=== PATIENT | male | born 1960 | race Caucasian/White ===

== ENCOUNTER → 2016-11-05 | Outpatient (CLI) | payer MEDICAID ==
[2016-11-05 12:23] LABS: EKG EKG PERFORMED
[2016-11-05 13:15] LABS: Basophils % (A) 0 %; CH 31.4; CHCM 33.6; Eosinophils # (A) 0.1 k/uL (0-0.7); Eosinophils % (A) 3 %; HCT 46.3 % (39.0-53.0); HDW 2.52; HGB 15.4 gm/dL (13.0-17.5); Luc # (Auto) 0.13; Luc % (Auto) 3; Lymphocytes # (A) 1.8 k/uL (1.0-4.8); Lymphocytes % (A) 35 %; MCH 31.3 pg (25.0-35.0); MCHC 33.3 g/dL (31.0-37.0); MCV 93.9 fL (80.0-100.0); Mean Platelet Volume 7.2; Monocytes # (A) 0.3 k/uL (0-1.0); Monocytes % (A) 5 %; Neutrophils # (A) 2.8 k/uL (1.3-7.7); Neutrophils % (A) 54 %; RBC 4.93 m/uL (4.30-5.90); RDW 12.7 % (11.5-15.5); WBC 5.1 k/uL (3.8-10.6); WBC (Perox) 5.38
[2016-11-05 13:23] LABS: Partial Thromboplastin Time 28.6 sec (22.0-30.0); Prothrombin Time 9.8 sec (9.0-12.0)
[2016-11-05 13:29] LABS: Anion Gap 9 mmol/L; Blood Urea Nitrogen 17 mg/dL (9-20); Calcium 9.2 mg/dL (8.4-10.2); Carbon Dioxide 28 mmol/L (22-30); Chloride 104 mmol/L (98-107); Glucose 105 mg/dL (74-99); Non-African American GFR(MDRD) >60 (>60 ml/min/1.73 sqM); Potassium 4.5 mmol/L (3.5-5.1); Sodium 141 mmol/L (137-145)
--- NOTE | 2016-11-05 13:49 | XR ---
EXAMINATION TYPE: XR chest 2V DATE OF EXAM: 11/05/2016 12:48 PM COMPARISON: NONE INDICATION: Presurgical clearance TECHNIQUE: Single frontal view of the chest is obtained. FINDINGS: The heart size is normal. The pulmonary vasculature is normal. The lungs are clear. There is hyperinflation flattening the diaphragms. Consider COPD within the differential. IMPRESSION: 1. No acute pulmonary process. 2. COPD
[2016-11-05 13:57] LABS: Appearance,Urine Clear (Clear); Bilirubin,Urine Negative (Negative); Glucose,Urine (UA) Negative (Negative); Ketones,Urine Negative (Negative); Leukocyte Esterase,Urine Negative (Negative); Nitrite,Urine Negative (Negative); PH, Urine 5.5 (5.0-8.0); Protein,Urine Trace (Negative); Specific Gravity,Urine 1.025 (1.001-1.035); UA Billing (MACRO vs. MICRO) CHEM; Urobilinogen,Urine <2.0 mg/dL (<2.0)
== END | disposition home or self-care (01) ==
LOC: LABPAT 12:03
PROVIDERS: ATTEND Orthopaedic Surgery Orthopaedic Surgery of the Spine
DX: Z01.810 Encounter for preprocedural cardiovascular examination (principal); Z01.812 Encounter for preprocedural laboratory examination; J44.9 Chronic obstructive pulmonary disease, unspecified
CPT/HCPCS: 71020; 80048; 81003; 85025; 85610; 85730; 93005

== ENCOUNTER → 2016-11-19 | Outpatient (CLI) | payer MEDICAID | END | disposition home or self-care (01) | LOC: LABPAT 12:47 | PROVIDERS: ATTEND Orthopaedic Surgery Orthopaedic Surgery of the Spine | DX: Z01.812 Encounter for preprocedural laboratory examination (principal) | CPT/HCPCS: 86850; 86900; 86901; 87070 ==

== ENCOUNTER 2016-11-24 11:38 | Day surgery (SDC) | payer MEDICAID ==
[2016-11-18 10:35] VITALS: BMI 30.2
[~2016-11-24 11:38] MED LIST: BACITRACIN 50,000 UNIT, POLYMYXIN B 500,000 UNIT in SODIUM CHLORIDE 0.9% IRRIGATIO 1,00... IRRIGATION ONE; DEXAMETHASONE SOD PHOSPHATE 10 MG/ML 1 ML VIAL IV ONE; LIDOCAINE 1% 20 ML VIAL (10MG/ML) FOR IV START INTRADERMA PRN; MIDAZOLAM 2 MG/2 ML VIAL IV PRN; ONDANSETRON 4 MG/2 ML VIAL IVP ONE; SCOPOLAMINE 1.5MG/72HR PATCH TRANSDERM ONE; ceFAZolin 2 GM in SODIUM CHLORIDE 0.9% 100 ML IVPB ONE
[2016-11-24] MEDS: LACTATED RINGERS 1,000 ML IV SCH ×2 (12:35→13:20)
[2016-11-24] MEDS ORDERED: LIDOCAINE 1% 20 ML VIAL (10MG/ML) FOR IV START INTRADERMA ONE (12:36)
[2016-11-24] MEDS ORDERED: ROCURONIUM BROMIDE 10 MG/ML 10 ML VIAL IV ONE (13:19)
[2016-11-24] MEDS ORDERED: LIDOCAINE 1% INJ 10MG/ML (20 ML MDV) ONE (13:19)
[2016-11-24] MEDS ORDERED: HYDROmorphone (PF) 1 MG/ML ONE (13:19)
[2016-11-24] MEDS ORDERED: fentaNYL (PF) 50 MCG/ML 2 ML AMP ONE (13:19)
[2016-11-24] MEDS ORDERED: MIDAZOLAM 2 MG/2 ML VIAL ONE (13:19)
[2016-11-24] MEDS ORDERED: GLYCOPYRROLATE 0.2 MG/ML 2 ML VIAL ONE (13:19)
[2016-11-24] MEDS ORDERED: NEOSTIGMINE 1 MG/ML 10 ML VIAL ONE (13:19)
[2016-11-24] MEDS ORDERED: PROPOFOL 10 MG/ML 20 ML VIAL IV ONE (13:19)
[2016-11-24] MEDS ORDERED: GELATIN SPONGE,ABSORB (LARGE) 1 EACH SPONGE TOPICAL ONE (13:47)
[2016-11-24] MEDS ORDERED: LIDOCAINE 0.5%-EPI 1:200,000 50 ML VIAL SQ ONE ×2 (13:47)
[2016-11-24] MEDS ORDERED: methylPREDNISolone ACETATE 80 MG/ML 1 ML VIAL MISCELLANE ONE ×2 (13:47→14:26)
--- NOTE | 2016-11-24 14:08 | FL ---
EXAMINATION TYPE: FL guidance operating room DATE OF EXAM: 11/24/2016 2:05 PM HISTORY: Flouroscopy time 5 seconds of fluoroscopy provided. IMPRESSION: 1. Fluoroscopy time.
--- NOTE | 2016-11-24 14:41 | P.OP ---
Date of Procedure: 11/24/16 Preoperative Diagnosis: Herniated nucleus pulposus L4 5 Lower extremity radiculopathy Degenerative disc disease Spinal stenosis Postoperative Diagnosis: Same Anesthesia: GETA Pathology: none sent Condition: stable Description of Procedure: BRIEF OPERATIVE NOTE Preoperative Diagnosis: Herniated nucleus pulposis L4 5, lower extremity radiculopathy, degenerative disc disease L4 5, spinal stenosis Postoperative Diagnosis: Same Procedure: Laminectomy and decompression L4 5 Discectomy for decompression L4 5 Use of fluoroscopic guidance Surgeon: Dr. Greer [employer] Administrator: Juan Ramon HODGES who is present throughout the entire the case persistence during positioning, dissection, exposure, visualization, and all crucial elements of the case as well as closure. Anesthesia: General anesthesia Estimated blood loss: Approximately 100 mL Complications: None apparent Components implanted: None Disposition: To recovery room in good stable condition. OPERATIVE INDICATIONS The patient has been having issues in their lower back and lower extremities. He was found to have a disc herniation L4 5 with significant stenosis which correlated well with his back and lower extremity symptoms. The patient has been through conservative treatment. He is not having any prolonged benefit despite aggressive conservative treatment. We discussed various treatment options including surgery, and the patient wishes to proceed with surgery We discussed the risk, patient's alternatives and benefits of surgery including but not limited to, risk of bleeding risk of infection, risk of need for further surgery, risk of decreased, loss of motion, loss of function, nerve damage, paralysis, heart attack, blindness and . OPERATIVE SUMMARY After discussing all the risks, patient alternatives and benefits at length, the patient elected to proceed with surgical intervention, signed informed consent, and presented for their procedure. The patient was seen and examined in the preoperative holding area and the surgical site was marked. The patient was given antibiotics and brought to the operating room. The patient was sedated and intubated by anesthesia in standard fashion. The patient was positioned on to the operating room table in a prone position on the appropriate frame which was well-padded and well molded. We were careful to pad any bony prominences and pressure points. We were careful to maintain the patient's cervical spine and good neutral alignment and position throughout. The patient was prepped and draped in a normal standard fashion. An appropriate timeout and keystone protocol performed. We were able to proceed with the surgery. Fluoroscopy was utilized to establish the appropriate level. The local wound area was infiltrated with local anesthetic. An incision was made at the midline longitudinally over the appropriate levels at L4 5. Dissection was taken down subcutaneously to the level of the fascia which was split midline. Dissection was taken over the lamina. Intraoperative fluoroscopy was taken which showed a marker at the appropriate level at L4 5. With the appropriate level positively confirmed, we were able to proceed with laminectomy. The wound was copiously irrigated and suctioned dry as had been done periodically throughout the case. I performed a laminectomy with a combination of curettes and a high-speed bur and Kerrison rongeurs. A small medial facetectomy was performed again further access. A partial foraminotomy was also performed. Portions of the ligamentum flavum were taken down to expose the dura and traversing nerve root. I was able to mobilize the traversing nerve root and gain access to the disc space. Note was made of obvious compression from the disc. There were also a significant increased amount of blood vessels at the area causing some further pressure on the nerve root. I was able to cauterize cc with bipolar cauterization. This took some pressure off the nerve root as well. Protecting the soft tissue structures, a small annulotomy was established. There was significant disc protrusion and disc herniations. I was able to perform discectomy and remove any extruded disc fragments and any loose fragments from within the disc itself. There is some significant disc desiccation noted. I tried to preserve the disc annulus that appeared stable. There were no further extruded fragments noted. There is no evidence of dural tear or leak. Good hemostasis maintained. The wound was copiously irrigated and suctioned dry. Good decompression and discectomy was noted. We were able to proceed with closure. The fascia was closed for a watertight closure. The subcuticular tissue was closed with absorbable suture. The wound was cleaned and dried and dressed with the appropriate dressing. The drapes were broken down. The patient was gently rolled back onto their hospital bed being careful to maintain their cervical spine and good neutral alignment and position. They were woken up by anesthesia, extubated, and brought to the recovery room in good stable condition. The patient will be admitted to the hospital for observation and for appropriate postoperative care, medical management and monitoring. We will continue to follow them closely about the postoperative course.
[2016-11-24 14:55] VITALS: TEMP 97.4
[2016-11-24] MEDS: HYDROmorphone 1 MG/ML 1 ML SYRINGE IVP PRN ×3 (15:04→15:48)
[2016-11-24] MEDS ORDERED: DIAZEPAM 5 MG TAB PO PRN (15:27)
[2016-11-24] MEDS ORDERED: HYDROmorphone 1 MG/ML 1 ML SYRINGE IVP PRN (15:27)
[2016-11-24] MEDS ORDERED: BENZOCAINE/MENTHOL LOZENG 1 EACH LOZENGE MUCOUS MEM PRN (15:27)
[2016-11-24] MEDS ORDERED: HYDROcodone/APAP 5-325MG 1 EACH TAB PO PRN ×2 (15:27)
[2016-11-24] MEDS ORDERED: IBUPROFEN 600 MG TAB PO PRN (15:27)
[2016-11-24] MEDS ORDERED: TRIMETHOBENZAMIDE 100 MG/ML 2 ML VIAL IM PRN (15:27)
[2016-11-24] MEDS ORDERED: oxyCODONE ER 15 MG TAB.ER.12H PO SCH (15:30)
--- NOTE | 2016-11-24 15:31 | P.DS ---
Providers Attending physician: Lori Greer Primary care physician: [facility] Hospital Course: The patient presented on the day of admission as per his operative note. He had a herniated disc at L4 5 which is causing back pain and lower extremity radiculopathy and had failed conservative treatment. Physical Exam The incision site is clean dry and intact. There is no erythema no drainage. There is no purulence no evidence of infection. Abdomen soft and nontender. Chest has good excursion with deep inspiration and expiration. The patient has active and passive range of motion intact at the upper and lower extremities. There is no acute change in neurologic status. Hospital Course The patient has been making good progress postoperatively status post laminectomy and discectomy at L4 5 for his herniated nucleus pulposis with stenosis and lower extremity radiculopathy.. He is mobile and his pain is well- controlled. He feels his legs are made improvement with surgery already. They have completed the prophylactic antibiotics without any signs or symptoms of infection. The patient has been able to advance their diet, and is tolerating diet adequately. The pain was initially controlled with IV medications and is now controlled appropriately with oral medications. The patient has been able to increase their mobilization. The patient has progressed appropriately. I think they are in good stable condition for discharge today. They will be sent home with appropriate prescriptions. I answered their questions to the best of my ability in a language that they can understand and they are agreeable with the plan. They will follow up as directed in approximately 2 weeks or sooner if he is having any problems.. Patient Condition at Discharge: Good Plan - Discharge Summary Discharge Medication List Gabapentin [Neurontin] 100 mg PO HS 11/18/16 [History] Ibuprofen [Motrin] 800 mg PO BID 11/18/16 [History] Pantoprazole Sodium [Protonix] 40 mg PO BID 11/18/16 [History] oxyCODONE ER [OxyCONTIN 15MG E.R] 15 mg PO DIRECTED 11/18/16 [History] Follow up Appointment(s)/Referral(s): Lori Greer DO [Doctor of Osteopathic Medicine] - 2 Weeks (With Juan Ramon Balbuena at Dr. Greer's office) Activity/Diet/Wound Care/Special Instructions: Keep site clean. May shower with waterproof dressing intact. Avoid heavy or rigorous activity. May ambulate to tolerance. May remove dressing after 72 hours. And then may shower with area uncovered. Do not soak in a tub. Keep Steri-Strips intact and allow them to fray off on their own. Discharge Disposition: HOME SELF-CARE
[2016-11-24] MEDS ORDERED: KETOROLAC 30 MG/ML 1 ML VIAL IVP ONE (15:43)
[2016-11-24] MEDS ORDERED: LACTATED RINGERS 1,000 ML IV ONE (15:57)
[2016-11-24 16:07] VITALS: RESP 18
[2016-11-24] MEDS ORDERED: LABETALOL 5 MG/ML VIAL MDV IVP ONE (16:38)
[2016-11-24 16:47] VITALS: BP 146/83; PULSE 56
[2016-11-24] MEDS ORDERED: PANTOPRAZOLE 40 MG TABLET PO SCH (17:30)
[2016-11-24] MEDS ORDERED: ceFAZolin 2 GM in SODIUM CHLORIDE 0.9% 100 ML IVPB SCH (21:00)
[2016-11-24] MEDS ORDERED: IBUPROFEN 800 MG TAB PO SCH (21:00)
[2016-11-24] MEDS ORDERED: GABAPENTIN 100 MG CAP PO SCH (21:00)
== END 2016-11-24 16:56 | disposition home or self-care (01) ==
LOC: OR 11:38 → 3SUR 14:41 → OR 16:56
PROVIDERS: ATTEND Orthopaedic Surgery Orthopaedic Surgery of the Spine
DX: M51.16 Intervertebral disc disorders with radiculopathy, lumbar region (principal); M51.36 Other intervertebral disc degeneration, lumbar region; M51.26 Other intervertebral disc displacement, lumbar region; M48.06 Spinal stenosis, lumbar region; K21.9 Gastro-esophageal reflux disease without esophagitis; J44.9 Chronic obstructive pulmonary disease, unspecified; F17.200 Nicotine dependence, unspecified, uncomplicated; Z79.1 Long term (current) use of non-steroidal anti-inflammatories (NSAID); Z79.891 Long term (current) use of opiate analgesic; Z79.899 Other long term (current) drug therapy; Z88.8 Allergy status to other drugs, medicaments and biological substances
CPT/HCPCS: 86900; 86901; 86850; 63030; J2250; J1040; J2710; J0690; J2405; J2001; J3010; J1885; J1170; J2704

== ENCOUNTER → 2016-12-17 | Outpatient (CLI) | payer MEDICAID ==
--- NOTE | 2016-12-17 17:29 | MR ---
EXAMINATION TYPE: MR shoulder RT wo con DATE OF EXAM: 12/17/2016 9:32 AM COMPARISON: NONE HISTORY: Right shoulder pain TECHNIQUE: Multiplanar, multisequence imaging of the right shoulder is performed without contrast. FINDINGS: Rotator Cuff: Normal signal involving the distal margin of the supraspinatus tendon extending to the insertion. Measures approximately 2 x 1.3 cm compatible severe tendinosis and partial tear. No defini te through thickness tear or retraction. Acromioclavicular Joint: Hypertrophic change of the AC joint noted. No definite mass effect upon the supraspinatus tendon or muscle. Glenohumeral Joint: No sizable joint effusion. Inferior glenohumeral ligament intact. Labrum: Findings are suspicious for SLAP tear. Biceps Tendon: The long head of biceps is in normal location within bicipital groove. Increased fluid surrounding the biceps tendon compatible with tendinosis. Bone marrow signal: No focal abnormal marrow signal is appreciated. Other: No additional significant abnormality is appreciated. IMPRESSION: 1. Distal supraspinatus tendinosis with partial tear but no evidence of retraction or through thickne ss tear. 2. SLAP tear 3. Bicipital tendinosis
== END | disposition home or self-care (01) ==
LOC: RADMRIMAIN 08:51
PROVIDERS: ATTEND Family Medicine
DX: M75.111 Incomplete rotator cuff tear or rupture of right shoulder, not specified as traumatic (principal); M75.81 Other shoulder lesions, right shoulder; S43.401A Unspecified sprain of right shoulder joint, initial encounter

== ENCOUNTER 2017-11-23 18:25 | Observation (INO) | payer MEDICAID ==
--- NOTE | 2017-11-23 19:52 | ED ---
General Adult HPI - General Source: patient, RN notes reviewed Mode of arrival: ambulatory Limitations: no limitations <Caleb Cheema - Last Filed: 11/23/17 22:02> <Justino Mayes - Last Filed: 11/23/17 22:10> - General Chief complaint: Nausea/Vomiting/Diarrhea Stated complaint: Chest pain Time Seen by Provider: 11/23/17 19:36 - History of Present Illness Initial comments: This a 57-year-old male presents emergency Department with multiple complaints. Patient states that last he had an episode where he coughed up some blood. Patient states he was in his morning normal smoker's cough states she's never had blood before. Patient states it was mixed in with some phlegm. Patient states he had some associated nausea and some chest tightness at that time. Patient states that he's had some on-and-off symptoms but has not had repeat of hemoptysis since then. Patient states today he developed some chest pressure again along with nausea and felt some tingling in his cheek region bilaterally. Patient states it started worrying him. Patient states his coworkers told him that he turned pale and he felt lightheaded at that time. Patient states he does take Protonix daily and chronic pain meds. Patient denies any prior cardiac disease denies prior cardiac stenting or stress test. Patient states he is a smoker. (Caleb Cheema) - Related Data Home Medications Medication Instructions Recorded Confirmed Ibuprofen [Motrin] 800 mg PO BID PRN 11/18/16 11/23/17 Pantoprazole Sodium [Protonix] 40 mg PO BID 11/18/16 11/23/17 Baclofen 10 mg PO HS 11/23/17 11/23/17 oxyCODONE HCL 15 mg PO 5XD 11/23/17 11/23/17 Allergies Allergy/AdvReac Type Severity Reaction Status Date / Time cyclobenzaprine AdvReac granger Verified 11/23/17 20:27 [From Flexeril] Review of Systems ROS Other: All systems not noted in ROS Statement are negative. <Caelb Cheema - Last Filed: 11/23/17 22:02> ROS Other: All systems not noted in ROS Statement are negative. <Justino Mayes - Last Filed: 11/23/17 22:10> ROS Statement: Those systems with pertinent positive or pertinent negative responses have been documented in the HPI. Past Medical History Past Medical History: COPD, GERD/Reflux Additional Past Medical History / Comment(s): inijury to neck and rt shoulder, herniated disk History of Any Multi-Drug Resistant Organisms: None Reported Past Surgical History: Orthopedic Surgery Additional Past Surgical History / Comment(s): rotator cuff rt shoulder, nerve repair palm left hand, epidural injections Past Anesthesia/Blood Transfusion Reactions: No Reported Reaction Past Psychological History: No Psychological Hx Reported Smoking Status: Current every day smoker Past Alcohol Use History: None Reported Past Drug Use History: None Reported - Past Family History Mother Family Medical History: No Reported History <Caleb Cheema - Last Filed: 11/23/17 22:02> General Exam Limitations: no limitations General appearance: alert, in no apparent distress Head exam: Present: atraumatic, normocephalic, normal inspection Eye exam: Present: normal appearance, PERRL, EOMI. Absent: scleral icterus, conjunctival injection, periorbital swelling Neck exam: Present: normal inspection, full ROM. Absent: tenderness, meningismus, lymphadenopathy Respiratory exam: Present: normal lung sounds bilaterally. Absent: respiratory distress, wheezes, rales, rhonchi, stridor Cardiovascular Exam: Present: regular rate, normal rhythm, normal heart sounds. Absent: systolic murmur, diastolic murmur, rubs, gallop, clicks GI/Abdominal exam: Present: soft, tenderness (Mild epigastric), normal bowel sounds. Absent: distended, guarding, rebound, rigid <Caleb Cheema - Last Filed: 11/23/17 22:02> Vital Signs 11/23/17 11/23/17 18:57 20:58 Temperature 98 F Pulse Rate 103 H 79 Respiratory 20 20 Rate Blood Pressure 169/108 145/98 O2 Sat by Pulse 98 98 Oximetry Medical Decision Making - Lab Data Result diagrams: 11/23/17 20:10 11/23/17 20:10 <Caleb Cheema - Last Filed: 11/23/17 22:02> - Lab Data Result diagrams: 11/23/17 20:10 11/23/17 20:10 <Justino Mayes - Last Filed: 11/23/17 22:10> - Medical Decision Making 57-year-old male present emergency department for some chest discomfort pressure. Patient had near syncope versus dizziness or today. Patient be admitted for further cardiac workup. (Caleb Cheema) I saw this patient in conjunction with the physician clinical project assistant. I performed independent history and physical exam. Agree with case management. (Justino Mayes) - Lab Data Lab Results 11/23/17 11/23/17 11/23/17 Range/Units 20:10 20:10 20:10 WBC 6.0 (3.8-10.6) k/uL RBC 5.04 (4.30-5.90) m/uL Hgb 15.2 (13.0-17.5) gm/dL Hct 45.5 (39.0-53.0) % MCV 90.3 (80.0-100.0) fL MCH 30.2 (25.0-35.0) pg MCHC 33.5 (31.0-37.0) g/dL RDW 13.0 (11.5-15.5) % Plt Count 211 (150-450) k/uL Neutrophils % 62 % Lymphocytes % 30 % Monocytes % 5 % Eosinophils % 1 % Basophils % 0 % Neutrophils # 3.7 (1.3-7.7) k/uL Lymphocytes # 1.8 (1.0-4.8) k/uL Monocytes # 0.3 (0-1.0) k/uL Eosinophils # 0.1 (0-0.7) k/uL Basophils # 0.0 (0-0.2) k/uL PT (9.0-12.0) sec INR (<1.2) APTT (22.0-30.0) sec D-Dimer (<0.60) mg/L FEU Sodium 142 (137-145) mmol/L Potassium 4.2 (3.5-5.1) mmol/L Chloride 106 (98-107) mmol/L Carbon Dioxide 25 (22-30) mmol/L Anion Gap 11 mmol/L BUN 12 (9-20) mg/dL Creatinine 0.70 (0.66-1.25) mg/dL Est GFR (MDRD) Af Amer >60 (>60 ml/min/1.73 sqM) Est GFR (MDRD) Non-Af >60 (>60 ml/min/1.73 sqM) Glucose 89 (74-99) mg/dL Calcium 9.4 (8.4-10.2) mg/dL Magnesium 1.9 (1.6-2.3) mg/dL Total Bilirubin 0.4 (0.2-1.3) mg/dL AST 25 (17-59) U/L ALT 48 (21-72) U/L Alkaline Phosphatase 75 (38-126) U/L Total Creatine Kinase 137 (55-170) U/L CK-MB (CK-2) 1.4 (0.0-2.4) ng/mL CK-MB (CK-2) Rel Index 1.0 Troponin I <0.012 (0.000-0.034) ng/mL Total Protein 7.1 (6.3-8.2) g/dL Albumin 4.3 (3.5-5.0) g/dL Amylase 70 (30-110) U/L Lipase 116 (23-300) U/L // Range/Units 20:10 WBC (3.8-10.6) k/uL RBC (4.30-5.90) m/uL Hgb (13.0-17.5) gm/dL Hct (39.0-53.0) % MCV (80.0-100.0) fL MCH (25.0-35.0) pg MCHC (31.0-37.0) g/dL RDW (11.5-15.5) % Plt Count (150-450) k/uL Neutrophils % % Lymphocytes % % Monocytes % % Eosinophils % % Basophils % % Neutrophils # (1.3-7.7) k/uL Lymphocytes # (1.0-4.8) k/uL Monocytes # (0-1.0) k/uL Eosinophils # (0-0.7) k/uL Basophils # (0-0.2) k/uL PT 10.4 (9.0-12.0) sec INR 1.1 (<1.2) APTT 28.3 (22.0-30.0) sec D-Dimer 0.42 (<0.60) mg/L FEU Sodium (137-145) mmol/L Potassium (3.5-5.1) mmol/L Chloride (98-107) mmol/L Carbon Dioxide (22-30) mmol/L Anion Gap mmol/L BUN (9-20) mg/dL Creatinine (0.66-1.25) mg/dL Est GFR (MDRD) Af Amer (>60 ml/min/1.73 sqM) Est GFR (MDRD) Non-Af (>60 ml/min/1.73 sqM) Glucose (74-99) mg/dL Calcium (8.4-10.2) mg/dL Magnesium (1.6-2.3) mg/dL Total Bilirubin (0.2-1.3) mg/dL AST (17-59) U/L ALT (21-72) U/L Alkaline Phosphatase (38-126) U/L Total Creatine Kinase (55-170) U/L CK-MB (CK-2) (0.0-2.4) ng/mL CK-MB (CK-2) Rel Index Troponin I (0.000-0.034) ng/mL Total Protein (6.3-8.2) g/dL Albumin (3.5-5.0) g/dL Amylase (30-110) U/L Lipase (23-300) U/L Disposition <Caleb Cheema - Last Filed: 11/23/17 22:02> <Justino Mayes - Last Filed: 11/23/17 22:10> Clinical Impression: Chest pain, Near syncope Disposition: ADMITTED IP TO THIS HOSP Condition: Stable Referrals: Caleb Rodriguez DO [Primary Care Provider] - 1-2 days
[2017-11-23 20:20] LABS: Basophils % (A) 0 %; Eosinophils # (A) 0.1 k/uL (0-0.7); Eosinophils % (A) 1 %; HCT 45.5 % (39.0-53.0); HGB 15.2 gm/dL (13.0-17.5); Lymphocytes # (A) 1.8 k/uL (1.0-4.8); Lymphocytes % (A) 30 %; MCH 30.2 pg (25.0-35.0); MCHC 33.5 g/dL (31.0-37.0); MCV 90.3 fL (80.0-100.0); Mean Platelet Volume 7.6; Monocytes # (A) 0.3 k/uL (0-1.0); Monocytes % (A) 5 %; Neutrophils # (A) 3.7 k/uL (1.3-7.7); Neutrophils % (A) 62 %; Platelet Count 211 k/uL (150-450); RBC 5.04 m/uL (4.30-5.90)
[2017-11-23 20:36] LABS: ALT 48 U/L (21-72); AST 25 U/L (17-59); Albumin 4.3 g/dL (3.5-5.0); Alkaline Phosphatase 75 U/L (38-126); Amylase 70 U/L (30-110); Anion Gap 11 mmol/L; Blood Urea Nitrogen 12 mg/dL (9-20); Calcium 9.4 mg/dL (8.4-10.2); Carbon Dioxide 25 mmol/L (22-30); Chloride 106 mmol/L (98-107); Glucose 89 mg/dL (74-99); Lipase 116 U/L (23-300); Magnesium 1.9 mg/dL (1.6-2.3); Potassium 4.2 mmol/L (3.5-5.1); Sodium 142 mmol/L (137-145); Total Bilirubin 0.4 mg/dL (0.2-1.3); Total Protein 7.1 g/dL (6.3-8.2)
--- NOTE | 2017-11-23 20:40 | XR ---
EXAMINATION TYPE: XR chest 2V DATE OF EXAM: 11/23/2017 COMPARISON: 11/05/2016 INDICATION: Chest pain, hemoptysis TECHNIQUE: Frontal and lateral views of the chest are obtained. FINDINGS: The heart size is normal. The pulmonary vasculature is normal. The lungs are clear. There is hyperinflation flattening the diaphragms. Correlate for COPD. IMPRESSION: 1. No acute pulmonary process. 2. COPD.
[2017-11-23 20:42] LABS: INR 1.1 (<1.2); Partial Thromboplastin Time 28.3 sec (22.0-30.0); Prothrombin Time 10.4 sec (9.0-12.0)
[2017-11-23 20:43] LABS: Creatine Kinase 137 U/L (55-170)
[2017-11-23 20:46] LABS: D-Dimer 0.42 mg/L FEU (<0.60)
[2017-11-23 20:57] LABS: Creatine Kinase MB 1.4 ng/mL (0.0-2.4); Troponin I <0.012 ng/mL (0.000-0.034)
[2017-11-23] MEDS ORDERED: NITROGLYCERIN SL TABS 0.4 MG TAB SUBLINGUAL PRN (22:03)
[2017-11-23] MEDS ORDERED: HEPARIN SODIUM,PORCINE 5,000 UNIT/ML 1 ML VIAL IV ONE (22:03)
[2017-11-23] MEDS ORDERED: HEPARIN SOD,PORK IN 0.45% NACL 25,000 UNIT in 0.45% NACL 1 500ML.BAG IV SCH (22:15)
[2017-11-24 00:16] VITALS: BMI 31.0
[2017-11-24] MEDS ORDERED: TEMAZEPAM 15 MG CAP PO PRN (01:03)
[2017-11-24] MEDS ORDERED: ALPRAZolam 0.25 MG TAB PO PRN (01:03)
[2017-11-24] MEDS ORDERED: hydrALAZINE HCL 20 MG/ML 1 ML VIAL IVP PRN (01:04)
[2017-11-24] MEDS: amLODIPine 5 MG TAB PO SCH ×2 (01:53→12:33)
--- NOTE | 2017-11-24 02:08 | HP ---
HISTORY AND PHYSICAL DATE OF SERVICE: 11/23/2017 CHIEF COMPLAINT: Chest and abdominal pain. HISTORY OF PRESENT ILLNESS: This 57-year-old gentleman with a past medical history of multiple medical problems including history of DJD, history of back surgery, COPD, GERD being followed Dr. Caleb Rodriguez in the outpatient setting, was complaining of abdominal pain and as well as lower chest pain for the past several weeks. The patient also has some today the patient had some of this same type discomfort and as well as some vomiting also. The patient also has some cough and some minimal hemoptysis. Because of multiple symptomatology, patient was taken to [facility] Emergency Room from work and admitted for further evaluation and treatment . The patient also reported increase in stress, social stress also at this time. There is no history of fever, rigors. PAST MEDICAL HISTORY: COPD, GERD, DJD. MEDICATIONS: Prior to admission include: 1. Baclofen 10 mg q.h.s. 2. Oxycodone 50 mg b.i.d. p.o. 5 times daily. 3. Protonix 40 mg daily. 4. Motrin 800 mg b.i.d. p.r.n. ALLERGIES: FLEXERIL. FAMILY HISTORY: No history of heart disease or strokes in the family. SOCIAL HISTORY: History of smoking. No history of alcohol intake. REVIEW OF SYSTEMS: ENT: No diminished vision or hearing. Cardiovascular as mentioned. Respiratory: As mentioned earlier. GI mentioned earlier. : No dysuria. NERVOUS SYSTEM: No numbness or weakness. Allergy/Immunology: No asthma or hayfever. Musculoskeletal: As mentioned earlier. Hematology/Oncology: As mentioned earlier. Dermatology: Negative. Rheumatology: Negative. Psychiatric: As mentioned earlier. PHYSICAL EXAMINATION: Alert and oriented x1. Pulse 70, blood pressure 186/105, respirations 16, temperature 98.3, pulse ox 97% on room air HEENT: Conjunctivae normal. Oral mucosa moist. Neck is no jugular venous distention. No carotid bruit. No lymph node enlargement. Cardiovascular S1-S2. No S3, no S4. Respiratory: Breath sounds diminished in the bases. No rhonchi and no crackles. ABDOMEN: Soft. Mild diffuse discomfort in the epigastrium. No mass palpable. No hepatosplenomegaly. No ascites. Legs no edema and no swelling. NERVOUS SYSTEM: Higher functions as mentioned earlier. Moves all 4 limbs. No focal motor or sensory deficits. Lymphatics: No lymph nodes palpable in the neck, axillae or groin. Skin no ulcer, rash or bleeding. LABS: CBC, BMP within normal limits. ASSESSMENT: 1. Chest pain, abdominal pain, rule out coronary artery disease. 2. Possible gastroesophageal reflux disease. 3. History of chronic obstructive pulmonary disease. 4. History of degenerative joint disease. 5. History of nicotine dependence. RECOMMENDATIONS AND DISCUSSION: In this 57-year-old gentleman who presented with multiple complex medical issues, we will monitor the patient closely. Acute coronary syndrome protocol. Cardiology consultation. Possible stress test. Symptomatic treatment. I would also recommend proton pump inhibitors. Otherwise closely monitor. Smoking cessation advised and recommend close follow up with Dr. Rodriguez in the outpatient setting. Prognosis guarded. Further recommendations to follow. MMODL / IJN: [id number] /
[2017-11-24 03:09] LABS: Cholesterol 140 mg/dL (<200); HDL Cholesterol 45 mg/dL (40-60); LDL Cholesterol,Calculated 75 mg/dL (0-99); Triglycerides 98 mg/dL (<150)
[2017-11-24 03:27] LABS: Creatine Kinase 121 U/L (55-170)
[2017-11-24 03:41] LABS: Creatine Kinase MB 0.9 ng/mL (0.0-2.4); Troponin I <0.012 ng/mL (0.000-0.034)
[2017-11-24 07:13] LABS: Creatine Kinase 121 U/L (55-170)
[2017-11-24 07:27] LABS: Creatine Kinase MB 0.9 ng/mL (0.0-2.4); Troponin I <0.012 ng/mL (0.000-0.034)
[2017-11-24] MEDS ORDERED: PANTOPRAZOLE 40 MG/10 ML VIAL IVP SCH (09:00)
[2017-11-24] MEDS ORDERED: ASPIRIN 81 MG PO SCH (09:00)
[2017-11-24] MEDS ORDERED: ASPIRIN 325 MG TAB PO SCH (09:00)
[2017-11-24] MEDS ORDERED: NICOTINE 14MG/24HR PATCH TRANSDERM SCH (09:00)
[2017-11-24] MEDS ORDERED: IBUPROFEN 800 MG TAB PO PRN (09:26)
[2017-11-24] MEDS ORDERED: AMINOPHYLLINE 500 MG/20 ML VIAL IV PRN (09:48)
[2017-11-24] MEDS ORDERED: REGADENOSON 0.4 MG/5 ML SYRINGE IV ONE (09:48)
--- NOTE | 2017-11-24 11:38 | ECHOF ---
Referral Reason:chest pain MEASUREMENTS -------- HEIGHT: 175.3 cm WEIGHT: 95.3 kg BP: 120/69 RVIDd: 3.1 cm (< 3.3) IVSd: 1.0 cm (0.6 - 1.1) LVIDd: 5.1 cm (3.9 - 5.3) LVPWd: 1.1 cm (0.6 - 1.1) IVSs: 1.7 cm LVIDs: 3.2 cm LVPWs: 1.8 cm LAESV Index (A-L): 22.68 ml/m Ao Diam: 2.9 cm (2.0 - 3.7) AV Cusp: 1.9 cm (1.5 - 2.6) LA Diam: 3.4 cm (2.7 - 3.8) MV EXCURSION: 18.742 mm (> 18.000) MV EF SLOPE: 93 mm/s (70 - 150) EPSS: 1.0 cm MV E Neto: 0.67 m/s MV DecT: 187 ms MV A Neto: 0.81 m/s MV E/A Ratio: 0.83 RAP: 5.00 mmHg RVSP: 9.86 mmHg FINDINGS -------- Sinus rhythm. This was a technically good study. The left ventricular size is normal. Left ventricular wall thickness is normal. Overall left vent ricular systolic function is normal with, an EF between 55 - 60 %. The right ventricle is mildly enlarged. Normal LA size by volume 22+/-6 ml/m2. The right atrium is normal in size. The aortic valve is trileaflet, and appears structurally normal. No aortic stenosis or regurgitation. The mitral valve leaflets are mildly thickened. There is trace mitral regurgitation. Trace tricuspid regurgitation present. Right ventricular systolic pressure is normal at < 35 mmHg. There is no evidence of pulmonary hypertension. The pulmonic valve is normal. The aortic root size is normal. Normal inferior vena cava with normal inspiratory collapse consistent with estimated right atrial pre ssure of 5 mmHg. There is no pericardial effusion. CONCLUSIONS -------- 1. Sinus rhythm. 2. This was a technically good study. 3. The left ventricular size is normal. 4. Left ventricular wall thickness is normal. 5. Overall left ventricular systolic function is normal with, an EF between 55 - 60 %. 6. The right ventricle is mildly enlarged. 7. Normal LA size by volume 22+/-6 ml/m2. 8. The aortic valve is trileaflet, and appears structurally normal. No aortic stenosis or regurgitati on. 9. The mitral valve leaflets are mildly thickened. 10. There is trace mitral regurgitation. 11. Trace tricuspid regurgitation present. 12. Right ventricular systolic pressure is normal at < 35 mmHg. 13. There is no evidence of pulmonary hypertension. 14. The aortic root size is normal. 15. There is no pericardial effusion. NURSING ASSOCIATE: Bipin Carlson RDCS
--- NOTE | 2017-11-24 11:58 | P.STRESS ---
- Stress Test Note Stress Test Results/Findings: Exam Performed: NM stress lexiscan cardiolite Exam Date: 11/24/17 Reason for Exam: Chest Pain Height: 5 ft 9 in Weight: 95.254 kg Protocol: Lizbeth Scan Stage: na Duration of Exercise: na Resting Heart Rate: 58 Resting Blood Pressure: 121/87 Maximum Achieved Heart Rate: 84 Maximum Achieved Blood Pressure: 135/87 85% PMHR: na 100% PMHR: na METS: na Technologist Comment: Stress Test Results/Findings: This is a 57-year-old gentleman with history of 4 smoking and family history of ischemic heart disease and also hypercholesterolemia who was admitted to the hospital with chest pain and shortness of breath. His cardiac enzymes were negative. EKGs did not reveal any acute changes. Baseline EKG showed sinus rhythm with normal TN interval, QRS duration. A standard dose of Lexiscan was infused. EKGs taken during and after the infusion did not reveal any changes to suggest ischemia. Final impression: #1. Negative Lexiscan stress test #2. Report on the nuclear images to be given by the radiologist.
[2017-11-24 12:28] VITALS: BP 133/90; PULSE 61; RESP 17; TEMP 98.2
--- NOTE | 2017-11-24 12:33 | NM ---
EXAMINATION TYPE: NM stress lexiscan cardiolite DATE OF EXAM: 11/24/2017 COMPARISON: NONE HISTORY: Chest pain TECHNIQUE: After the intravenous administration of 9.25 mCi Tc 99m Sestamibi - Cardiolite resting SP ECT images acquired 45 minutes post injection. The patient received 0.4mg Lexiscan, 23.6 mCi Tc 99m Sestamibi - Stress images obtained [address] injection FINDINGS: Review of stress and rest SPECT images demonstrates no distinct perfusion abnormality. Gated analysi s shows normal wall motion with an estimated left ventricular ejection fraction of 58 %. IMPRESSION: No scintigraphic evidence for reversible ischemia.
--- NOTE | 2017-11-24 14:21 | P.CRDCN ---
History of Present Illness Consult date: 11/24/17 Consult reason: chest pain, shortness of breath History of present illness: Mr. De La Rosa is a pleasant 57-year-old male past medical history significant for chronic tobacco abuse, hypertension, gastroesophageal reflux disease and chronic back pain. 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 We have been asked to see him in consultation for complaints of chest pain. He states this started last week with symptoms of chest pain/tightness, shortness of breath, nausea and diaphoresis. He states it felt like someone was squeezing him. He then started coughing and was bringing up pink tinged sputum. This episode last approximately 45 minutes and resolved on its own. He was fine over the weekend and then yesterday he had a similar episode but this time along with chest pain , shortness of breath, cough and diaphoresis he actually vomiting one time. For this reason he presented to ED for evaluation. He denies any more episodes since being in the hospital but does continue to complain of mild epigastric discomfort. Telemetry tracings have been unremarkable. He denies ever having had symptoms of palpitations, PND or orhopnea. EKG on arrival reveals sinus mechanism with no acute ST or T-wave abnormalities with poor R-wave progression. Chest xray reveals evidence of COPD. Laboratory data reviewed, hemoglobin 15.2, platelets 211, d-dimer negative, potassium 4.2, magnesium 1.9, creatinine 0.7, cardiac enzymes negative 3, LDL 75, HDL 45, total cholesterol 140. Current cardiac medications include amlodipine 5 mg daily and aspirin 81 mg daily. There are no old cardiac diagnostic testing to review. Review of Systems At the time my exam: CONSTITUTIONAL: Denies fever. Denies chills. EYES: Denies blurred vision. Denies vision changes. Denies eye pain. EARS, NOSE, MOUTH & THROAT: Denies headache. Denies sore throat. Denies ear pain. CARDIOVASCULAR: Denies chest pain. Denies shortness of breath. Denies orthopnea. Denies PND. Denies palpitations. RESPIRATORY: Denies cough. GASTROINTESTINAL: Denies abdominal pain. Denies diarrhea. Denies constipation. Denies nausea. Denies vomiting. MUSCULOSKELETAL: Complains of chronic lower back pain. INTEGUMENTARY: Denies pruitis. Denies rash. NEUROLOGIC: Denies numbness. Denies tingling. Denies weakness. PSYCHIATRIC: Denies anxiety. Denies depression. ENDOCRINE: Denies fatigue. Denies weight change. Denies polydipsia. Denies polyurina. GENITOURINARY: Denies burning, hematuria or urgency with micturation. HEMATOLOGIC: Denies history of anemia. Denies bleeding. Past Medical History Past Medical History: COPD, GERD/Reflux Additional Past Medical History / Comment(s): inijury to neck and rt shoulder, herniated disk History of Any Multi-Drug Resistant Organisms: None Reported Past Surgical History: Orthopedic Surgery Additional Past Surgical History / Comment(s): rotator cuff rt shoulder, nerve repair palm left hand, epidural injections Past Anesthesia/Blood Transfusion Reactions: No Reported Reaction Past Psychological History: No Psychological Hx Reported Smoking Status: Current every day smoker Past Alcohol Use History: None Reported Additional Past Alcohol Use History / Comment(s): started smoking age 15, down to < 1/2 PPD Past Drug Use History: None Reported - Past Family History Mother Family Medical History: No Reported History Medications and Allergies Home Medications Medication Instructions Recorded Confirmed Type Ibuprofen [Motrin] 800 mg PO BID PRN 11/18/16 11/23/17 History Pantoprazole Sodium [Protonix] 40 mg PO BID 11/18/16 11/23/17 History Baclofen 10 mg PO HS 11/23/17 11/23/17 History oxyCODONE HCL 15 mg PO 5XD 11/23/17 11/23/17 History Aspirin 81 mg PO DAILY #0 chew 11/24/17 Rx Nicotine 14Mg/24Hr Patch [Habitrol] 1 patch TRANSDERM DAILY #30 patch 11/24/17 Rx amLODIPine [Norvasc] 5 mg PO DAILY #30 tab 11/24/17 Rx Allergies Allergy/AdvReac Type Severity Reaction Status Date / Time cyclobenzaprine AdvReac granger Verified 11/23/17 20:27 [From Flexeril] Physical Exam Vitals: Vital Signs Temp Pulse Pulse Resp BP BP Pulse Ox 11/24/17 07:40 97.5 F L 65 18 120/69 95 11/24/17 04:00 16 11/24/17 03:49 98.4 F 61 16 118/71 93 L 11/24/17 00:00 16 11/23/17 23:40 98.3 F 70 16 186/105 96 11/23/17 22:27 98.5 F 82 16 171/89 98 11/23/17 20:58 79 20 145/98 98 11/23/17 18:57 98 F 103 H 20 169/108 98 Intake and Output 11/23/17 11/24/17 11/24/17 22:59 06:59 14:59 Other: Weight 95.254 kg Blood pressure 120/69 heart rate 65 afebrile maintaining oxygen saturations on room air. GENERAL: This is a 57-year-old male in no apparent distress at the time of my examination. HEENT: Head is atraumatic, normocephalic. Pupils are equal, round. Sclerae anicteric. Conjunctivae are clear. Mucous membranes of the mouth are moist. Neck is supple. There is no jugular venous distention. No carotid bruit is heard. LUNGS: Clear to auscultation no wheezes, rales or rhonchi. No chest wall tenderness is noted on palpation or with deep breathing. Diminished bilaterally. HEART: Regular rate and rhythm without murmurs, rubs or gallops. S1 and S2 heard. ABDOMEN: Soft, nontender. Bowel sounds are heard. No organomegaly noted. EXTREMITIES: No evidence of peripheral edema and no calf tenderness noted. VASCULAR: Radial and dorsalis pedis pulses palpated, no evidence of clubbing. NEUROLOGIC: Patient is awake, alert and oriented x3. Results 11/23/17 20:10 11/23/17 20:10 Cardiac Enzymes 11/23/17 11/23/17 11/24/17 Range/Units 20:10 20:10 02:40 AST 25 (17-59) U/L CK-MB (CK-2) 1.4 0.9 (0.0-2.4) ng/mL Troponin I <0.012 <0.012 (0.000-0.034) ng/mL 11/24/17 Range/Units 06:10 AST (17-59) U/L CK-MB (CK-2) 0.9 (0.0-2.4) ng/mL Troponin I <0.012 (0.000-0.034) ng/mL Coagulation 11/23/17 11/24/17 Range/Units 20:10 06:10 PT 10.4 (9.0-12.0) sec APTT 28.3 37.0 H (22.0-30.0) sec Lipids 11/24/17 Range/Units 02:40 Triglycerides 98 (<150) mg/dL Cholesterol 140 (<200) mg/dL HDL Cholesterol 45 (40-60) mg/dL CBC 11/23/17 Range/Units 20:10 WBC 6.0 (3.8-10.6) k/uL RBC 5.04 (4.30-5.90) m/uL Hgb 15.2 (13.0-17.5) gm/dL Hct 45.5 (39.0-53.0) % Plt Count 211 (150-450) k/uL Comprehensive Metabolic Panel 11/23/17 Range/Units 20:10 Sodium 142 (137-145) mmol/L Potassium 4.2 (3.5-5.1) mmol/L Chloride 106 (98-107) mmol/L Carbon Dioxide 25 (22-30) mmol/L BUN 12 (9-20) mg/dL Creatinine 0.70 (0.66-1.25) mg/dL Glucose 89 (74-99) mg/dL Calcium 9.4 (8.4-10.2) mg/dL AST 25 (17-59) U/L ALT 48 (21-72) U/L Alkaline Phosphatase 75 (38-126) U/L Total Protein 7.1 (6.3-8.2) g/dL Albumin 4.3 (3.5-5.0) g/dL Current Medications Generic Name Dose Route Start Last Admin Trade Name Freq PRN Reason Stop Dose Admin Alprazolam 0.25 mg 11/24/17 01:03 11/24/17 01:55 Xanax PO 0.25 mg TID PRN Administration Anxiety Amlodipine Besylate 5 mg 11/24/17 01:04 11/24/17 01:53 Norvasc PO 5 mg DAILY [facility] Administration Aspirin 81 mg 11/24/17 09:00 Aspirin PO DAILY [facility] Nicotine 1 patch 11/24/17 09:00 Habitrol 14mg/24hr Patch TRANSDERM DAILY [facility] Nitroglycerin 0.4 mg 11/23/17 22:03 Nitrostat SUBLINGUAL Q5M PRN Chest Pain Pantoprazole Sodium 40 mg 03/06/18 09:00 Protonix IVP BID [facility]AUNCEY Temazepam 15 mg 11/24/17 01:03 Restoril PO HS PRN Insomnia Intake and Output 11/23/17 11/24/17 11/24/17 22:59 06:59 14:59 Other: Weight 95.254 kg 11/23/17 20:10 11/23/17 20:10 Assessment and Plan Assessment: ASSESSMENT 1. Chest pain, atypical. No EKG evidence of an acute coronary event. Cardiac enzymes are negative. Symptoms may also be suggestive of an issue with her gallbladder or stomach. 2. Hypertension 3. Chronic tobacco abuse PLAN Obtain 2-D echocardiogram and Doppler study to assess cardiac structure and function Perform Lexiscan stress test to assess for reversible cardiac ischemia. The above diagnostic testing is negative he is stable from a cardiac perspective. May require possible investigation into the abdomen and possible gallbladder secondary to nausea, vomiting and epigastric pain. Thank you kindly for this consultation. Nurse Practitioner note has been reviewed, I agree with a documented findings and plan of care. Patient was seen and examined.
[2017-11-24] MEDS ORDERED: PANTOPRAZOLE 40 MG TABLET PO SCH (17:30)
[2017-11-24] MEDS ORDERED: BACLOFEN 10 MG TAB PO SCH (21:00)
--- NOTE | 2017-11-24 23:06 | DS ---
DISCHARGE SUMMARY DATE OF SERVICE: 11/24/2017. FINAL DIAGNOSES: 1. Chest pain, abdominal pain, possible gastroesophageal reflux disease. Myocardial infarction ruled out. Stress test is negative. 2. History of gastroesophageal reflux disease. 3. Chronic obstructive pulmonary disease. 4. History of degenerative joint disease. 5. History of nicotine dependence. 6. History of anxiety. CONDITION: The patient will be discharged in stable condition with guarded prognosis. Cardiology has recommended for the patient. HISTORY OF PRESENT ILLNESS: This 57-year-old gentleman with a past history including multiple medical problems, followed by Dr. Caleb Rodriguez in the outpatient setting, was admitted with lower chest pain/upper epigastric pain. The patient was treated conservatively. Myocardial infarction ruled out. Stress test negative. The patient is being discharged in stable condition with guarded prognosis. PHYSICAL EXAMINATION: Vital signs stable. Cardiovascular muffled. Abdomen soft. Liver and spleen not enlarged. DIET: Cardiac. ACTIVITY: Limited. FOLLOWUP: 1. Follow up with Dr. Rodriguez in 2 to 3 days. 2. Follow up with cardiology as recommended. MEDICATIONS: 1. Norvasc 5 mg orally daily. 2. Baclofen 10 mg at bedtime. 3. Motrin 400 b.i.d. p.r.n. 4. Habitrol 14 daily. 5. Oxycodone 50 mg 5 times daily. 6. Protonix 40 mg p.o. b.i.d. 7. Xanax 0.5 t.i.d. p.r.n. MMTANOL / SHANAEN: [id number] /
--- NOTE | 2017-11-25 10:10 | EST ---
- Stress Test Note Stress Test Results/Findings: Exam Performed: NM stress lexiscan cardiolite Exam Date: 11/24/17 Reason for Exam: Chest Pain Height: 5 ft 9 in Weight: 95.254 kg Protocol: Lizbeth Scan Stage: na Duration of Exercise: na Resting Heart Rate: 58 Resting Blood Pressure: 121/87 Maximum Achieved Heart Rate: 84 Maximum Achieved Blood Pressure: 135/87 85% PMHR: na 100% PMHR: na METS: na Technologist Comment: Stress Test Results/Findings: This is a 57-year-old gentleman with history of 4 smoking and family history of ischemic heart disease and also hypercholesterolemia who was admitted to the hospital with chest pain and shortness of breath. His cardiac enzymes were negative. EKGs did not reveal any acute changes. Baseline EKG showed sinus rhythm with normal AR interval, QRS duration. A standard dose of Lexiscan was infused. EKGs taken during and after the infusion did not reveal any changes to suggest ischemia. Final impression: #1. Negative Lexiscan stress test #2. Report on the nuclear images to be given by the radiologist. [facility]
== END 2017-11-24 14:35 | disposition home or self-care (01) ==
LOC: EC 18:25 → 3OBS 22:03 → INTOOBSV 22:09 → OBSVTOIN 22:09 → UNDODISIN 11-24 14:35
PROVIDERS: ADMIT Internal Medicine; ATTEND Internal Medicine
DX: R07.89 Other chest pain (principal); F17.210 Nicotine dependence, cigarettes, uncomplicated; J44.9 Chronic obstructive pulmonary disease, unspecified; K21.9 Gastro-esophageal reflux disease without esophagitis; M19.90 Unspecified osteoarthritis, unspecified site; Z60.9 Problem related to social environment, unspecified; I10 Essential (primary) hypertension; F41.9 Anxiety disorder, unspecified; Z79.1 Long term (current) use of non-steroidal anti-inflammatories (NSAID); Z79.891 Long term (current) use of opiate analgesic; Z73.3 Stress, not elsewhere classified; Z79.899 Other long term (current) drug therapy; Z88.8 Allergy status to other drugs, medicaments and biological substances; Z71.6 Tobacco abuse counseling; Z79.82 Long term (current) use of aspirin; Z82.49 Family history of ischemic heart disease and other diseases of the circulatory system; R10.13 Epigastric pain
CPT/HCPCS: 96366; 96375; 96376; 96365; 99285; 36415; 93005; 93017; 93306; 85379; 80061; 80053; 82150; 82550 ×2; 82553 ×2; 83690; 83735; 84484 ×2; 85025; 85610; 85730 ×2; 71046; 78452; G0378 ×2; A9500; J1644 ×2; J2785; C9113; 96374

== ENCOUNTER → 2018-06-26 | Outpatient (CLI) | payer MEDICAID ==
--- NOTE | 2018-06-26 08:41 | MR ---
EXAMINATION TYPE: MR cervical spine wo con DATE OF EXAM ORDERED: 06/26/2018 8:30 AM HISTORY: Low Back Pain / Deg Disc / M51.37 / Cervicalgia. TECHNOLOGIST HISTORY AT TIME OF EXAM: Neck pain, BUE weakness x 15 years COMPARISON: None. TECHNIQUE: Multiplanar, multiecho imaging of the cervical spine was obtained without contrast on a 1 .5 lulu magnet. FINDINGS: Prevertebral soft tissues are normal. There is a normal craniocervical junction. Cord signal is normal. Vertebral body height and alignment are maintained. Atlantoaxial relationships are normal. At C2-C3, there is mild disc space loss. Intervertebral foramina are well maintained. The facet and u ncovertebral joints are unremarkable. At C3-C4, there is disc space loss. There is bilateral intervertebral foraminal narrowing, worse on t he right than the left. There is a broad-based disc displacement deforming the thecal sac with mild c ord contact but without compression. The facet and uncovertebral joints are unremarkable. At C4-C5, there is disc space loss. There is bilateral intervertebral foraminal narrowing. There is a right paracentral disc protrusion deforming the thecal sac without definite cord contact. The facet and uncovertebral joints are unremarkable. At C5-C6, there is disc space loss. Intervertebral foramina are well maintained. There is a minimal b road-based disc displacement. The facet and uncovertebral joints are unremarkable. At C6-C7, there is disc space loss. There is mild, bilateral intervertebral foraminal narrowing. Ther e is a broad-based disc displacement. The facet and uncovertebral joints are unremarkable. At C7-T1, there is disc space loss. There is bilateral intervertebral foraminal narrowing, slightly w orse on the left than the right. There is a broad-based disc displacement. The facet and uncovertebra l joints are unremarkable. IMPRESSION: 1. DIFFUSE DEGENERATIVE DISC DISEASE. 2. MULTILEVEL INTERVERTEBRAL FORAMINAL NARROWING. 3. RIGHT PARACENTRAL DISC PROTRUSION, C4-5.
--- NOTE | 2018-06-26 08:45 | MR ---
MR lumbar spine wo/w con LBP, RLE radic x 10 years, surgery 2017 [facility] Multiplanar, multiecho imaging of the lumbar spine was obtained without contrast on a 3 Yanci magnet. REFERENCE:None. FINDINGS: Paraspinal soft tissues are normal. Vertebral body height and alignment are maintained. Cord signal is maintained. The conus ends normall y at the level of the mid body of L1. At T12-L1, the intervertebral foramina are well maintained. There is no significant compressive disco zaid. There is minor capsulitis in the facets. At L1-2, there is mild, bilateral intervertebral foraminal narrowing. There is a bilobed disc displac ement. There is minor capsulitis within the facets. At L2-3, there is disc space loss. There is a broad-based disc displacement. Intervertebral foramina are maintained. There is minor capsulitis within the facets. At L3-4, there is mild disc space loss. There is no significant compressive discopathy. Intervertebra l foramina are well maintained. There is minor hypertrophic change and capsulitis within the facets. At L4-5, there is disc space loss. There is a broad-based disc displacement. Intervertebral foramina are well maintained. There is moderate hypertrophic change in the facets with some lateral impression upon the thecal sac. At L5-S1, there is disc space loss. There is a broad-based disc displacement. Intervertebral foramina are maintained. There is hypertrophic change within the facets. IMPRESSION: 1. DIFFUSE DEGENERATIVE DISC DISEASE AND FACET ARTHROPATHY. 2. NO SIGNIFICANT COMPRESSIVE DISCOPATHY OR NEURAL COMPRESSION.
== END ==
LOC: RADMRIMAIN 07:16
PROVIDERS: ATTEND Physician Assistant Medical
DX: M99.71 Connective tissue and disc stenosis of intervertebral foramina of cervical region (principal); M50.221 Other cervical disc displacement at C4-C5 level; M50.30 Other cervical disc degeneration, unspecified cervical region; M51.36 Other intervertebral disc degeneration, lumbar region; M46.96 Unspecified inflammatory spondylopathy, lumbar region
CPT/HCPCS: 72141; 72158; A9581

== ENCOUNTER → 2024-04-27 | Outpatient (CLI) | payer MEDICAID | END | disposition home or self-care (01) | LOC: LABPRL 11:34 | PROVIDERS: ATTEND Family Medicine | DX: Z13.220 Encounter for screening for lipoid disorders (principal); Z13.228 Encounter for screening for other metabolic disorders; Z13.29 Encounter for screening for other suspected endocrine disorder; E03.9 Hypothyroidism, unspecified; E11.69 Type 2 diabetes mellitus with other specified complication; I10 Essential (primary) hypertension; Z79.899 Other long term (current) drug therapy | CPT/HCPCS: 80053; 80061; 82043; 82570; 84439; 84443; 85025 ==

== ENCOUNTER 2024-05-23 16:18 | Emergency (ER) | payer MEDICAID ==
[2024-05-23 16:21] VITALS: TEMP 98.1
[2024-05-23] MEDS: LIDOCAINE 1% INJ 10MG/ML (20 ML MDV) SQ ONE (16:37)
[2024-05-23] MEDS: DIPH,PERTUS(ACELL)TETVAC-LF 0.5 ML VIAL IM ONE (16:38)
--- NOTE | 2024-05-23 17:03 | ED ---
Wound/Laceration HPI - General Chief Complaint: Wound/Laceration Stated Complaint: R hand index finger lac Time Seen by Provider: 05/23/24 16:24 Source: patient Mode of arrival: ambulatory Limitations: no limitations - History of Present Illness Initial Comments: 64-year-old male presenting with chief complaint of laceration to right index finger. He excellently nicked his finger with his circular saw. Bleeding is controlled at this time but if it is patient removes pressure bleeding resumes. He does not remember the last time he had a tetanus shot. laceration is about 1 cm long. He still has full range of motion and sensation to the finger - Related Data Home Medications Medication Instructions Recorded Confirmed Pantoprazole Sodium [Protonix] 40 mg PO BID 11/18/16 11/23/17 Baclofen 10 mg PO HS 11/23/17 11/23/17 oxyCODONE HCL [oxyCODONE HCL (IR)] 15 mg PO 5XD 11/23/17 11/23/17 Previous Rx's Medication Instructions Recorded ALPRAZolam [Xanax] 0.25 mg PO Q8H PRN #20 tab 11/24/17 Aspirin 81 mg PO DAILY #0 chew 11/24/17 Ibuprofen [Motrin] 400 mg PO BID PRN #0 11/24/17 Nicotine 14Mg/24Hr Patch [Habitrol] 1 patch TRANSDERM DAILY #30 patch 11/24/17 amLODIPine [Norvasc] 5 mg PO DAILY #30 tab 11/24/17 Cephalexin [Keflex] 500 mg PO Q12HR 7 Days #14 cap 05/23/24 Allergies Allergy/AdvReac Type Severity Reaction Status Date / Time cyclobenzaprine AdvReac granger Verified 11/23/17 20:27 [From Flexeril] Review of Systems ROS Statement: Those systems with pertinent positive or pertinent negative responses have been documented in the HPI. ROS Other: All systems not noted in ROS Statement are negative. Past Medical History Past Medical History: COPD, GERD/Reflux Additional Past Medical History / Comment(s): inijury to neck and rt shoulder, herniated disk History of Any Multi-Drug Resistant Organisms: None Reported Past Surgical History: Orthopedic Surgery Additional Past Surgical History / Comment(s): rotator cuff rt shoulder, nerve repair palm left hand, epidural injections Past Anesthesia/Blood Transfusion Reactions: No Reported Reaction Past Psychological History: No Psychological Hx Reported Past Alcohol Use History: None Reported Past Drug Use History: None Reported - Past Family History Mother Family Medical History: No Reported History General Exam Limitations: no limitations General appearance: alert, in no apparent distress Head exam: Present: atraumatic, normocephalic, normal inspection Eye exam: Present: normal appearance, EOMI Neck exam: Present: normal inspection. Absent: meningismus Respiratory exam: Absent: respiratory distress Cardiovascular Exam: Present: regular rate Extremities exam: Present: full ROM Neurological exam: Present: alert, oriented X3 Psychiatric exam: Present: normal affect, normal mood Expanded Type of lesion: Present: laceration (1.5 cm laceration to the right index finger) Course Vital Signs 05/23/24 05/23/24 16:19 17:17 Temperature 98.1 F 98.1 F Pulse Rate 100 86 Respiratory 20 18 Rate Blood Pressure 161/98 176/62 O2 Sat by Pulse 98 99 Oximetry Procedures - Laceration Laceration #1 Consent Obtained: verbal consent Indication: laceration Site: hand (Right index finger) Size (cm): 2 Description: linear Depth: simple, single layer Anesthetic Used: lidocaine 1%, without epi Anesthesia Technique: local infiltration Pre-repair: wound explored, irrigated extensively Type of Sutures: nylon Size of Sutures: 4-0 Number of Sutures: 4 Technique: simple, interrupted Patient Tolerated Procedure: well Medical Decision Making - Medical Decision Making Was pt. sent in by a medical professional or institution ([facility] Robert, TARIFF INSPECTOR, urgent care, hospital, or correction...) When possible be specific @ -No Did you speak to anyone other than the patient for history (EMS, parent, family, police, friend...)? What history was obtained from this source @ -No Did you review nursing and triage notes (agree or disagree)? Why? @ -I reviewed and agree with nursing and triage notes Were old charts reviewed (outside hosp., previous admission, EMS record, old EKG, old radiological studies, urgent care reports/EKG's, correction records)? Report findings @ -No old charts were reviewed Differential Diagnosis (chest pain, altered mental status, abdominal pain women, abdominal pain men, vaginal bleeding, weakness, fever, dyspnea, syncope, headache, dizziness, GI bleed, back pain, seizure, CVA, palpatations, mental health, musculoskeletal)? @ -Not applicable EKG interpreted by me (3pts min.). @ -As above X-rays interpreted by me (1pt min.). @ -None done CT interpreted by me (1pt min.). @ -None done U/S interpreted by me (1pt. min.). @ -None done What testing was considered but not performed or refused? (CT, X-rays, U/S, labs)? Why? @ -None What meds were considered but not given or refused? Why? @ -None Did you discuss the management of the patient with other professionals (professionals i.e. , PA, TARIFF INSPECTOR, lab, RT, psych nurse, social welfare administrator, signalman, teacher, event security officer, field case manager)? Give summary @ -No Was smoking cessation discussed for >3mins.? @ -No Was critical care preformed (if so, how long)? @ -No Were there social determinants of health that impacted care today? How? (Homelessness, low income, unemployed, alcoholism, drug addiction, transportation, low edu. Level, literacy, decrease access to med. care, care home, rehab)? @ -No Was there de-escalation of care discussed even if they declined (Discuss DNR or withdrawal of care, Hospice)? DNR status @ -No What co-morbidities impacted this encounter? (DM, HTN, Smoking, COPD, CAD, Cancer, CVA, ARF, Chemo, Hep., AIDS, mental health diagnosis, sleep apnea, morbid obesity)? @ -None Was patient admitted / discharged? Hospital course, mention meds given and route, prescriptions, significant lab abnormalities, going to OR and other pertinent info. @ -64-year-old male with chief complaint of 2 cm laceration of the right index finger after accidentally nicking it on a circular saw. His tetanus is updated today. Laceration is anesthetized, irrigated, and repaired, see procedure note for details. He is educated on wound care and signs of infection. Placed on Keflex for infection prophylaxis. Discharged home. Follow-up with PCP. Report back to ER with any new or worsening symptoms. Discussed return parameters and answered all questions. Patient conveyed verbal understanding and agreed to the plan. I discussed this case in detail with my attending Dr. Christina Undiagnosed new problem with uncertain prognosis? @ -No Drug Therapy requiring intensive monitoring for toxicity (Heparin, Nitro, Insulin, Cardizem)? @ -No Were any procedures done? @ -Laceration repair Diagnosis/symptom? @ -Finger laceration Acute, or Chronic, or Acute on Chronic? @ -Acute Uncomplicated (without systemic symptoms) or Complicated (systemic symptoms)? @ -uncomplicated Side effects of treatment? @ -No Exacerbation, Progression, or Severe Exacerbation? @ -No Poses a threat to life or bodily function? How? (Chest pain, [place], SC, pneumonia, PE, COPD, DKA, ARF, appy, cholecystitis, CVA, Diverticulitis, Homicidal, Suicidal, threat to staff... and all critical care pts) @ -No Disposition Clinical Impression: Laceration Disposition: HOME SELF-CARE Condition: Good Instructions (If sedation given, give patient instructions): Care For Your Stitches (ED), Finger Laceration (ED) Additional Instructions: Follow-up with PCP. Report back to ER with any new or worsening symptoms. Keep the wound clean dry and covered. Wash regularly with soap and water. Avoid fully submerging the wound in water for prolonged periods of time. Monitor for signs of infection, including but not limited to redness, swelling, warmth, tenderness, discharge, fever. Sutures may be removed in 10 to 14 days Prescriptions: Cephalexin [Keflex] 500 mg PO Q12HR 7 Days #14 cap Is patient prescribed a controlled substance at d/c from ED?: No Referrals: Caleb Rodriguez DO [Primary Care Provider] - 1-2 days Time of Disposition: 17:03
[2024-05-23 17:18] VITALS: BP 176/62; PULSE 86; RESP 18
== END 2024-05-23 17:20 | disposition home or self-care (01) ==
LOC: EC 16:18
DX: S61.210A Laceration without foreign body of right index finger without damage to nail, initial encounter (principal); Z23 Encounter for immunization; W31.2XXA Contact with powered woodworking and forming machines, initial encounter
CPT/HCPCS: 90715; 12001; 99282; J2001; 99283